=== PATIENT | female | born 1965 ===

== ENCOUNTER 2016-08-13 00:14 | Emergency (ER) | payer MEDICAID, OTHER ==
[2016-08-13] MEDS ORDERED: DIPHENHYDRAMINE 50 MG/ML SOL IV ONE (00:35)
[2016-08-13] MEDS ORDERED: SODIUM CHLORIDE 0.9% 1000ML 1,000 ML IV ONE (00:35)
[2016-08-13] MEDS ORDERED: DIPHENHYDRAMINE 50 MG/ML SOL ONE (00:37)
[2016-08-13] MEDS: SODIUM CHLORIDE 0.9% FLUSH 10 ML SOL IV PRN ×4 (00:40→02:43)
[2016-08-13 01:14] LABS: BASOPHILS % (AUTO) 2 % (0-3); EOSINOPHILS % (AUTO) 0 % (0-9); HEMATOCRIT 41 % (35-47); MEAN CORPUSCULAR HGB CONC 35.2 gm/dl (32.0-36.0); MONOCYTES % (AUTO) 8.5 % (0-12); NEUTROPHILS % (AUTO) 48.5 % (37-80)
[2016-08-13 01:23] LABS: CALCIUM 7.8 mg/dl (8.5-10.1)
[2016-08-13 01:24] LABS: APPEARANCE,URINE Clear; BILIRUBIN,URINE 2+ (NEGATIVE); COLOR,URINE Orange; GLUCOSE, URINE (UA) NEGATIVE (NEGATIVE); KETONES,URINE TRACE (NEGATIVE); LEUKOCYTE ESTERASE ,URINE NEGATIVE (NEGATIVE); NITRATE,URINE POSITIVE (NEGATIVE); OCCULT BLOOD,URINE 1+ (NEG-TRACE)
[2016-08-13] MEDS ORDERED: PROCHLORPERAZINE EDISYLATE 5 MG/ML SOL IV ONE (01:32)
[2016-08-13] MEDS ORDERED: MAGNESIUM CITRATE SOL PO PRN (01:33)
[2016-08-13] MEDS ORDERED: KETOROLAC TROMETHAMINE 30 MG/ML SOL IV ONE (01:35)
[2016-08-13 01:40] LABS: ANISOCYTOSIS SLIGHT AMT
[2016-08-13 01:41] LABS: ICTOTEST,URINE POSITIVE (NEGATIVE)
[2016-08-13] MEDS ORDERED: SODIUM CHLORIDE/KCL 20MEQ 1,000 ML IV ONE ×2 (02:07→02:09)
[2016-08-13] MEDS ORDERED: KETOROLAC TROMETHAMINE 30 MG/ML SOL ONE (02:36)
[2016-08-13] MEDS ORDERED: PROCHLORPERAZINE EDISYLATE 5 MG/ML SOL ONE (02:40)
[2016-08-13] MEDS ORDERED: MAGNESIUM CITRATE SOL ONE (03:01)
[2016-08-13] MEDS ORDERED: MINERAL OIL ENEMA 1 EA NMA PR ONE (03:04)
[2016-08-13 04:38] VITALS: PULSE 68; RESP 20; TEMP 97.6
[2016-08-13 05:49] VITALS: BP 110/62; O2SAT 97
[2016-08-13] MEDS ORDERED: POTASSIUM CHLORIDE 10 MEQ TER PO ONE (07:06)
[2016-08-13] MEDS ORDERED: POTASSIUM CHLORIDE 10 MEQ TER ONE (07:23)
== END 2016-08-13 08:00 | disposition home or self-care (01) | DRG 392 ==
LOC: ED 00:14
DX: K59.00 Constipation, unspecified (principal); E87.6 Hypokalemia
CPT/HCPCS: 36415; 74000; 80053; 81001; 82150; 85025; 96365; 96366; 96374; 96375; 99283; 99285; J0780; J1200; J1885

== ENCOUNTER 2016-08-15 19:46 | Emergency (ER) | payer MEDICAID, OTHER ==
[2016-08-15 20:25] VITALS: TEMP 98.2
[2016-08-15] MEDS ORDERED: KETOROLAC TROMETHAMINE 30 MG/ML SOL IM ONE (20:47)
[2016-08-15] MEDS ORDERED: PREDNISONE 20 MG TAB PO ONE (20:47)
[2016-08-15] MEDS ORDERED: KETOROLAC TROMETHAMINE 30 MG/ML SOL ONE (20:52)
[2016-08-15] MEDS ORDERED: PREDNISONE 20 MG TAB ONE (20:52)
[2016-08-15] MEDS ORDERED: DOXYCYCLINE 100 MG TAB PO SCH ×2 (21:00)
[2016-08-15] MEDS ORDERED: DOXYCYCLINE 100 MG TAB ONE (21:01)
[2016-08-15 21:39] VITALS: BP 155/71; PULSE 63; RESP 25; O2SAT 99
== END 2016-08-15 21:32 | disposition home or self-care (01) | DRG 206 ==
LOC: ED 19:46
DX: M94.0 Chondrocostal junction syndrome [Tietze] (principal)
CPT/HCPCS: 71020; 93005; 96372; 99283; 99284; J1885

== ENCOUNTER 2016-08-21 13:33 | Emergency (ER) | payer MEDICAID ==
[2016-08-21 13:50] VITALS: BP 147/80; PULSE 77; RESP 16; TEMP 99; O2SAT 100
[2016-08-21] MEDS ORDERED: KETOROLAC TROMETHAMINE 30 MG/ML SOL IM ONE (14:15)
[2016-08-21] MEDS ORDERED: KETOROLAC TROMETHAMINE 30 MG/ML SOL ONE (14:18)
== END 2016-08-21 14:30 | disposition home or self-care (01) | DRG 605 ==
LOC: ED 13:33
DX: S60.871A Other superficial bite of right wrist, initial encounter (principal); L03.123 Acute lymphangitis of right upper limb; W55.01XA Bitten by cat, initial encounter
CPT/HCPCS: 96372; 99282; 99283; J1885

== ENCOUNTER 2017-03-03 20:09 | Emergency (ER) | payer MEDICAID ==
[2017-03-03 20:29] VITALS: BP 176/92; PULSE 77; RESP 20; TEMP 98; O2SAT 96
[2017-03-03] MEDS ORDERED: KETOROLAC TROMETHAMINE 30 MG/ML SOL IM ONE (20:38)
[2017-03-03] MEDS ORDERED: KETOROLAC TROMETHAMINE 30 MG/ML SOL ONE (20:54)
== END 2017-03-03 21:53 | disposition home or self-care (01) | DRG 563 ==
LOC: ED 20:09
DX: S93.525A Sprain of metatarsophalangeal joint of left lesser toe(s), initial encounter (principal); S90.32XA Contusion of left foot, initial encounter
CPT/HCPCS: 73630; 99282; J1885

== ENCOUNTER 2018-06-22 20:03 | Inpatient (IN) | payer MEDICAID ==
[2018-06-22] MEDS ORDERED: SODIUM CHLORIDE 0.9% 1000ML 1,000 ML IV NR (20:45)
[2018-06-22] MEDS ORDERED: SODIUM CHLORIDE 0.9% 1000ML 1,000 ML IV ONE ×2 (20:48→21:44)
[2018-06-22] MEDS ORDERED: INSULIN HUMAN REGULAR 100 U/ML SOL IV ONE (20:50)
[2018-06-22 20:53] LABS: APPEARANCE,URINE Clear; BILIRUBIN,URINE NEGATIVE (NEGATIVE); COLOR,URINE Yellow; GLUCOSE, URINE (UA) 2+ (NEGATIVE); KETONES,URINE NEGATIVE (NEGATIVE); LEUKOCYTE ESTERASE ,URINE NEGATIVE (NEGATIVE); NITRATE,URINE NEGATIVE (NEGATIVE); OCCULT BLOOD,URINE TRACE INTACT (NEG-TRACE); PH,URINE 6.5; UROBILINOGEN,URINE 0.2 (0.2-1.0 EU)
[2018-06-22 20:55] LABS: HEMATOCRIT 50 % (35-47); HEMOGLOBIN 17.5 gm/dl (12.0-15.5); MEAN CORPUSCULAR HEMOGLOBIN 31.3 pg (27.0-32.0); MEAN CORPUSCULAR HGB CONC 35.2 gm/dl (32.0-36.0); MEAN CORPUSCULAR VOLUME 89 fL (81-99)
[2018-06-22 20:56] LABS: HEMOGLOBIN A1C > 14.0 % (4.8-6.0)
[2018-06-22 20:57] LABS: ALBUMIN 3.3 gm/dl (3.4-5.0); ALKALINE PHOSPHATASE 139 IU/L (46-116); ALT 16 IU/L (14-63); AST 16 IU/L (15-37); BILIRUBIN,TOTAL 1.7 mg/dl (0.2-1.0); BLOOD UREA NITROGEN 19 mg/dl (7-18); CARBON DIOXIDE 22.9 mEq/L (21-32); CHLORIDE 85 mMol/L (98-107); CREATININE 1.79 mg/dl (0.60-1.00); ESTIMATED AVE GLU > 355 mg/dl (91-125); POTASSIUM 3.4 mMol/L (3.5-5.1); TOTAL PROTEIN 8.2 gm/dl (6.4-8.2)
[2018-06-22 21:00] LABS: SODIUM 121 mMol/L (136-145)
[2018-06-22] MEDS ORDERED: INSULIN HUMAN REGULAR 100 U/ML SOL ONE (21:06)
[2018-06-22 21:10] LABS: GLUCOSE 843 mg/dl (74-106)
[2018-06-22] MEDS ORDERED: POTASSIUM CHLORIDE 10 MEQ TER ONE (21:10)
[2018-06-22] MEDS: POTASSIUM CHLORIDE 10 MEQ TER PO SCH (21:11)
[2018-06-22 21:19] LABS: BACTERIA TRACE (< 1+); CRYSTALS NEGATIVE (0-3 AVE/HPF); EPITHELIAL CELLS NEGATIVE (SQUAMOUS); RBC,URINE 0-1 (0-3AV/HPF); WBC,URINE 0-1 (0-5AV/HPF)
[2018-06-22 21:35] LABS: BAND NEUTROPHILS % (MANUAL) 1 %; LYMPHOCYTES % (MANUAL) 25 % (10-50); MONOCYTES % (MANUAL) 3 % (0-12); NEUTROPHILS % (MANUAL) 69 % (37-80)
[2018-06-22 21:36] LABS: BASOPHILS % (MANUAL) 0 % (0-3); EOSINOPHILS % (MANUAL) 2 % (0-9); NORMAL RBCS PRESENT
[2018-06-22] MEDS ORDERED: INSULIN HUMAN REGULAR 100 U/ML SOL IV PRN (21:45)
[2018-06-22] MEDS ORDERED: DOCUSATE SODIUM 100 MG SGL PO PRN (21:49)
[2018-06-22] MEDS ORDERED: ONDANSETRON HCL 4 MG TAB PO PRN (21:49)
[2018-06-22] MEDS: ACETAMINOPHEN 325 MG PO PRN (22:09)
[2018-06-22] MEDS: SODIUM CHLORIDE 0.9% FLUSH 10 ML SOL IV SCH (22:10)
[2018-06-22] MEDS: NOVOLOG FLEXPEN SC PRN (22:47)
[2018-06-22 23:03] LABS: CALCIUM 8.1 mg/dl (8.5-10.1); CARBON DIOXIDE 20.7 mEq/L (21-32); CREATININE 1.55 mg/dl (0.60-1.00)
[2018-06-22 23:06] LABS: POTASSIUM 2.9 mMol/L (3.5-5.1)
[2018-06-22] MEDS: SODIUM CHLORIDE/KCL 20MEQ 1,000 ML IV SCH (23:12)
[2018-06-23] MEDS: POTASSIUM CHLORIDE 10 MEQ TER PO SCH ×3 (00:01→06:12)
[2018-06-23] MEDS: NOVOLOG FLEXPEN SC PRN ×2 (00:03→05:09)
[2018-06-23] MEDS: ACETAMINOPHEN 325 MG PO PRN (02:11)
[2018-06-23] MEDS: SODIUM CHLORIDE/KCL 20MEQ 1,000 ML IV SCH ×2 (03:20→07:25)
[2018-06-23] MEDS: SODIUM CHLORIDE 0.9% FLUSH 10 ML SOL IV SCH ×3 (05:03→21:32)
[2018-06-23 07:06] LABS: CALCIUM 7.8 mg/dl (8.5-10.1); CARBON DIOXIDE 23.6 mEq/L (21-32); CREATININE 1.09 mg/dl (0.60-1.00); POTASSIUM 3.9 mMol/L (3.5-5.1)
[2018-06-23 07:17] LABS: BASOPHILS % (AUTO) 2 % (0-3); EOSINOPHILS % (AUTO) 3 % (0-9); HEMATOCRIT 42 % (35-47); HEMOGLOBIN 14.8 gm/dl (12.0-15.5); LYMPHOCYTES % (AUTO) 41.8 % (10-50); MEAN CORPUSCULAR HEMOGLOBIN 31.6 pg (27.0-32.0); MEAN CORPUSCULAR VOLUME 90 fL (81-99); MONOCYTES % (AUTO) 8.6 % (0-12)
[2018-06-23] MEDS ORDERED: INSULIN GLARGINE, RECOMBINAN 100 U/ML SOL SC SCH ×2 (08:00→18:12)
[2018-06-23] MEDS: ENOXAPARIN 40 MG SOL SC SCH (09:03)
[2018-06-23] MEDS: HUMALOG PEN 100 U/ML SC SCH ×4 (09:04→21:26)
[2018-06-23 20:42] LABS: APPEARANCE,URINE Clear; BILIRUBIN,URINE NEGATIVE (NEGATIVE); COLOR,URINE Yellow; GLUCOSE, URINE (UA) 3+ (NEGATIVE); KETONES,URINE NEGATIVE (NEGATIVE); LEUKOCYTE ESTERASE ,URINE NEGATIVE (NEGATIVE); NITRATE,URINE NEGATIVE (NEGATIVE); OCCULT BLOOD,URINE TRACE LYSED (NEG-TRACE)
[2018-06-23 20:45] LABS: BACTERIA 1+ (< 1+); CRYSTALS NEGATIVE (0-3 AVE/HPF); RBC,URINE 0-2 (0-3AV/HPF); WBC,URINE 0-2 (0-5AV/HPF)
[2018-06-23] MEDS ORDERED: NOVOLOG FLEXPEN SC ONE (20:49)
[2018-06-23] MEDS ORDERED: HUMALOG PEN 100 U/ML SC ONE ×2 (20:58→22:15)
[2018-06-24] MEDS: SODIUM CHLORIDE 0.9% FLUSH 10 ML SOL IV SCH ×2 (04:39→05:15)
[2018-06-24 07:51] VITALS: BP 121/74; PULSE 72; RESP 18; TEMP 98.1; O2SAT 94
[2018-06-24] MEDS ORDERED: INSULIN GLARGINE, RECOMBINAN 100 U/ML SOL SC SCH (08:15)
[2018-06-24] MEDS ORDERED: FLUCONAZOLE 150 MG TAB PO SCH (08:30)
[2018-06-24] MEDS: HUMALOG PEN 100 U/ML SC SCH ×3 (08:35→12:24)
[2018-06-24] MEDS: ENOXAPARIN 40 MG SOL SC SCH (08:36)
[2018-06-24 08:56] LABS: CALCIUM 8.9 mg/dl (8.5-10.1); CARBON DIOXIDE 19.4 mEq/L (21-32); CREATININE 0.98 mg/dl (0.60-1.00); POTASSIUM 3.8 mMol/L (3.5-5.1)
[2018-06-24] MEDS ORDERED: LISINOPRIL 5 MG TAB PO SCH (09:00)
[2018-06-24 14:01] LABS: *INSULIN 18.4 mcIU/mL (2.6 - 24.9)
== END 2018-06-24 16:15 | disposition home or self-care (01) | DRG 639 ==
LOC: ED 20:03 → ACUTE CARE 21:36
PROVIDERS: ADMIT Family Medicine; ATTEND Family Medicine
DX: E11.649 Type 2 diabetes mellitus with hypoglycemia without coma (principal); I10 Essential (primary) hypertension; E87.6 Hypokalemia
CPT/HCPCS: 36415; 71045; 80048; 80053; 81001; 82009; 82962; 83036; 85007; 85025; 85027; 87088; 87210; 93005; 93012; 96365; 96374; 99222; 99284; J1650; J1815; J1817; A9270-GY

== ENCOUNTER 2018-08-09 12:04 | Emergency (ER) | payer MEDICAID ==
[2018-08-09 12:08] VITALS: RESP 20; TEMP 96.8
[2018-08-09 12:34] LABS: INFLUENZA A NEGATIVE (NEGATIVE); INFLUENZA B NEGATIVE (NEGATIVE)
[2018-08-09] MEDS ORDERED: ONDANSETRON HCL 4 MG/2 ML SOL IV ONE (12:40)
[2018-08-09] MEDS ORDERED: PANTOPRAZOLE SODIUM 40 MG/10 ML PDS IV ONE (12:40)
[2018-08-09] MEDS ORDERED: KETOROLAC TROMETHAMINE 30 MG/ML SOL IV ONE (12:40)
[2018-08-09] MEDS ORDERED: SODIUM CHLORIDE 0.9% 1000ML 1,000 ML IV SCH (12:45)
[2018-08-09] MEDS ORDERED: PANTOPRAZOLE SODIUM 40 MG/10 ML PDS ONE (13:11)
[2018-08-09] MEDS ORDERED: KETOROLAC TROMETHAMINE 30 MG/ML SOL ONE (13:11)
[2018-08-09] MEDS ORDERED: ONDANSETRON HCL 4 MG/2 ML SOL ONE (13:11)
[2018-08-09 14:26] LABS: BASOPHILS % (AUTO) 1 % (0-3); EOSINOPHILS % (AUTO) 1 % (0-9); HEMATOCRIT 47 % (35-47); HEMOGLOBIN 15.8 gm/dl (12.0-15.5); MEAN CORPUSCULAR HEMOGLOBIN 32.2 pg (27.0-32.0); MEAN CORPUSCULAR HGB CONC 33.9 gm/dl (32.0-36.0); MEAN CORPUSCULAR VOLUME 95 fL (81-99); NEUTROPHILS % (AUTO) 67.9 % (37-80)
[2018-08-09 14:39] LABS: ALBUMIN 3.2 gm/dl (3.4-5.0); BILIRUBIN,TOTAL 1.2 mg/dl (0.2-1.0); CALCIUM 8.6 mg/dl (8.5-10.1); CARBON DIOXIDE 22.4 mEq/L (21-32); CREATININE 1.01 mg/dl (0.60-1.00); POTASSIUM 3.9 mMol/L (3.5-5.1); TOTAL PROTEIN 7.5 gm/dl (6.4-8.2)
[2018-08-09 15:04] VITALS: BP 177/105; PULSE 72; O2SAT 91
== END 2018-08-09 14:53 | disposition home or self-care (01) | DRG 392 ==
LOC: ED 12:04
DX: K29.70 Gastritis, unspecified, without bleeding (principal); E11.9 Type 2 diabetes mellitus without complications; I10 Essential (primary) hypertension
CPT/HCPCS: 36415; 80053; 85025; 87804; 96365; 96374; 96375; 99283; 99285; J1885; J2405

== ENCOUNTER 2018-11-23 14:47 | Emergency (ER) | payer MEDICAID ==
[2018-11-23] MEDS: SODIUM CHLORIDE 0.9% FLUSH 10 ML SOL IV PRN ×2 (15:09→16:13)
[2018-11-23 15:13] LABS: BASOPHILS % (AUTO) 1 % (0-3); EOSINOPHILS % (AUTO) 2 % (0-9); HEMATOCRIT 50 % (35-47); LYMPHOCYTES % (AUTO) 26.3 % (10-50); MEAN CORPUSCULAR VOLUME 91 fL (81-99); MONOCYTES % (AUTO) 6.4 % (0-12); NEUTROPHILS % (AUTO) 64.4 % (37-80)
[2018-11-23 15:24] VITALS: TEMP 98.3
[2018-11-23 15:28] LABS: ALBUMIN 3.2 gm/dl (3.4-5.0); BILIRUBIN,TOTAL 0.8 mg/dl (0.2-1.0); CALCIUM 8.4 mg/dl (8.5-10.1); CARBON DIOXIDE 21.8 mEq/L (21-32); CREATININE 0.89 mg/dl (0.60-1.00); TOTAL PROTEIN 7.5 gm/dl (6.4-8.2)
[2018-11-23] MEDS ORDERED: ALBUTEROL/IPRATROPIUM 1 VIAL SOL INH ONE (15:57)
[2018-11-23] MEDS ORDERED: SOLUMEDROL 125 MG/2 ML 125 MG/2 ML PDS IV ONE (15:59)
[2018-11-23] MEDS ORDERED: ALBUTEROL/IPRATROPIUM 1 VIAL SOL ONE (16:03)
[2018-11-23] MEDS ORDERED: SOLUMEDROL 125 MG/2 ML 125 MG/2 ML PDS ONE (16:03)
[2018-11-23 16:45] VITALS: PULSE 78; O2SAT 92
[2018-11-23 17:13] VITALS: BP 184/112; RESP 26
== END 2018-11-23 16:53 | disposition home or self-care (01) | DRG 153 ==
LOC: ED 14:47
DX: J06.9 Acute upper respiratory infection, unspecified (principal); E11.9 Type 2 diabetes mellitus without complications; R06.02 Shortness of breath
CPT/HCPCS: 71046; 80053; 85025; 85378; 96374; 99283; 99285; J2930